=== PATIENT | female | born 1985 | race Caucasian/White ===

== ENCOUNTER 2017-01-12 01:45 | Emergency (ER) | payer MEDICAID ==
[~2017-01-12] VITALS: Ht 165.1 cm; Wt 96.6 kg
[~2017-01-12 01:45] MED LIST: ASPI-COR81 M1 PO; BACTRIM DS 8001 TA1 PO; CLINDAMYCIN300 MG PO; DARVOCET-N6 EACH/PAK PO; FLEXERIL10 MG PO; FLINTSTONES1 CTB PO; IBUPROFEN800 MG PO; IRON TABLETS325 MG PO; MOTRIN400 MG PO; NAPROSYN500 M1 PO; PERCOCET 5/3251 EACH PO; PYRIDIUM 200MG200 MG PO; SEPTRA DS 800 M1 TAB PO; TYLENOL PM 5001 CAP PO
[2017-01-12 02:19] LABS: LYMPH # 2.6 K/mm3 (0.7-4.5); LYMPH % 20.3 % (10-50.0)
[2017-01-12 02:26] LABS: HEMOGLOBIN 14.8 g/dL (12.2-16.2)
[2017-01-12 02:46] LABS: URINE BLOOD NEGATIVE (NEG)
[2017-01-12 02:56] LABS: URINE BILIRUBIN - DIPSTICK 1+ (NEG)
--- NOTE | 2017-01-12 03:39 | Emergency Room Report ---
History of Present Illness Time Seen by [id number] Presenting Problem in Triage Pt arrived:Walked Presenting Problem:N/V WITH DIARRHEA AND ABD. PAIN Onset of symptoms date/time:01/12/17 or onset unknown for: Treatment Prior to Arrival: [employer] Provided by: Sepsis Risk Assessment: Temp: 98.5 B/P: 129/70 MAP: 115 Pulse: 65 Resp: 20 Recent fever? N Clinical Suspician of Infection? N Mental Status: 1 - Regular (Normal Baseline) Sepsis Risk:Low Sepsis Risk Have you (or family members/close friends) recently traveled outside the [place]? N If Yes, where/when: Have you had exposure to infectious disease within the past month? N TB? Other? Specify: Source patient, RN notes reviewed, family, RN/MD Exam Limitations no limitations Comment This is a 31-year-old female patient presenting to the emergency room with upper abdominal pain, nausea, vomiting, diarrhea for the past 5-6 hours. Patient denies any recent travel, any recent exposure to sick contacts. ALLERGIES Coded Allergies: Penicillins (09/14/16) History Medical History General CAD? Yes Angina: No [place]: Yes Hypertension? No Hyperlipidemia? No CHF? No DVT? No PE? No COPD? No Asthma? No Anemia? No GERD? No Gastric ulcers? No GI Bleed? No Hernia? No Thyroid Problems? No Hypothyroidism? No CVA? No Seizures? No Diabetes? No Renal Insuffiency? No End Stage Renal Disease? No UTI? No Stones? Yes GB Disease: Yes Nephritic Syndrome? No Asplenia? No Hepatitis? No Sickle Cell Disease? No Arthritis? No Migraines? No Cataracts? No Glaucoma? No MRSA? No HIV? No TB? No Anxiety? No Depression? No Cancer? 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 Ago Family History Family Hx Diabetes No CAD Yes Hypertension No Hyperlipidemia No Cancer No TB No Social History Smoking Hx Smoker: Current Every Day Smoker Tobacco: Yes Type Cigarettes Packs/day < 1 Pack Alcohol Alcohol: No Review of Systems All Other Systems Reviewed and Negative Gastrointestinal see HPI, abdominal pain, diarrhea, nausea, vomiting Physical Exam Vital Signs Vital Signs Date Time Temp Pulse Resp B/P Pulse O2 O2 Flow FiO2 Ox Delivery Rate 01/12 0526 98.5 69 14 124/69 96 01/12 0524 98.5 69 14 124/69 96 01/12 0437 98.5 69 14 124/ 96 01/12 0253 65 20 129/70 95 01/12 0207 20 01/12 0150 98.5 87 24 159/94 96 General Appearance normal appearance, WD/WN, no apparent distress Respiratory Status Yes: trachea midline, chest symmetrical, non tender chest. No: respiratory distress. Lung Sounds bilateral: normal breath sounds, lungs clear. Cardiovascular normal exam, regular rate/rhythm, no peripheral edema, no gallop, no JVD, no murmur, no rub, normal peripheral pulses Gastrointestinal normal bowel sounds, normal exam, non tender, soft, no organomegaly Extremities non-tender, normal range of motion, normal inspection Neurologic alert, sample cutter II-XII nml as tested, normal exam, oriented x 3 Mental status normal mood/affect Skin intact, normal color, warm/dry Medical Decision Making LABS/Meds/Orders Pt receiving controlled substance in ED? No Comment Upon reevaluation patient asleep, in no acute distress, medically stable. Advised of results obtained, need to drink plenty of fluids, alternate Zofran and Imodium for symptom control. If no better to follow-up with PCP for discharge instructions. Results/Orders Laboratory Tests 01/12/17 0235: Urine Color YELLOW, Urine Appearance CLEAR, Urine pH 5.5, Ur Specific [place] >= 1.030, Urine Protein NEGATIVE, Urine Ketones TRACE H, Urine Blood NEGATIVE, Urine Nitrate NEGATIVE, Urine Bilirubin 1+ H, Urine Urobilinogen 0.2, Ur Leukocyte Esterase NEGATIVE, Urine RBC OCC, Urine WBC 3-5, Ur Squamous Epith Cells 3-5, Urine Bacteria 2+, Urine Mucus 3+, Urine Glucose NEGATIVE 01/12/17 0200: Sodium 142, Potassium 3.4 L, Chloride 106, Carbon Dioxide 25, BUN 14, Creatinine 0.8, Estimated Creat Clear 155, Estimated GFR (MDRD) 84, Glucose 108 H, Calcium 8.8, Total Bilirubin 0.2, AST 14 L, ALT 18, Alkaline Phosphatase 90, Total Protein 7.4, Albumin 3.6, Globulin 3.8 H, Albumin/Globulin Ratio 0.9 L, Amylase 64, Lipase 332, WBC 12.8 H, RBC 4.91, Hgb 14.8, Hct 44.1, MCV 89.7, RDW 12.5, Plt Count 226, MPV 8.1, Gran % 72.2, Gran # 9.2 H, Lymphocytes % 20.3, Monocytes % 5.7, Eosinophils % 1.2, Basophils % 0.5, Lymphocytes # 2.6, Monocytes # 0.7, Eosinophils # 0.2, Basophils # 0.1, PUBS MCHC 33.6, MCH 30.1 Current Medication Orders Sig/Abel Start time Last Medication Dose Route Stop Time Status Admin Diphenoxylate HCl/ 5 MG ONCE ONE 01/12 05 DC Atropine PO 01/12 0516 Loperamide HCl 4 MG ONCE ONE 01/12 0515 DC 01/12 PO 01/12 0516 0523 Ketorolac 30 MG ONCE ONE 01/12 0215 DC 01/12 Tromethamine IV 01/12 0216 0207 Ondansetron HCl 0 .STK-MED ONE 01/12 0206 DC .ROUTE Sodium Chloride 1,000 ML .STK-MED ONE 01/12 0206 DC IV Ketorolac 0 .STK-MED ONE 01/12 0205 DC Tromethamine .ROUTE Ondansetron HCl 4 MG ONCE ONE 01/12 0200 DC 01/12 IV 01/12 0201 0206 Sodium Chloride 10 ML PRN PRN 01/12 0200 DCD IV 01/13 0159 Sodium Chloride 1,000 ML .Q1H1M 01/12 0200 DC 01/12 IV 01/12 0300 0207 Sodium Chloride 10 ML PRN PRN 01/12 0200 DCD IV 01/13 0200 Orders Procedure Date/time Status DIET-NOTHING BY MOUTH 01/[address] ABD/PELVIS REQ 01/12 0339 Active CULTURE, URINE 01/12 0235 Active URINE 01/12 0213 Complete IV SALINE LOCK 01/12 0159 Active URINALYSIS/COMPLETE 01/12 0159 Complete LIPASE 01/12 0159 Complete CBC WITH AUTO DIFF 01/12 015 Complete CHEM 12 PROFILE 01/12 015 Complete AMYLASE 01/12 015 Complete XRAY/CT/US XRAY/CT/US CT abdomen, pelvis CT interpretation by discussed w/radiologist CT Results abnormal Comment Please refer to radiologist's report, consistent with mesenteric adenitis Departure Departure Time of Disposition 05 Disposition DC Home or Self Care(routine) Clinical Impression Primary Impression: Mesenteric adenitis Secondary Impressions: Viral gastroenteritis Condition STABLE Patient Instructions DI for Mesenteric Adenitis-Adult, DI for Viral Gastroenteritis -- Adult Additional Instructions Please take [id number] Imodium as needed for diarrhea, and also find prescription attached for Zofran, to be taken as needed for just/vomiting. Please increase your fluid intake. Follow up with PCP if not better in 2-3 days. Discharge Counseling Counseled pt/family regarding diagnosis, test results, medications/RX, home care, follow up needs Comment Please take [id number] Imodium as needed for diarrhea, and also find prescription attached for Zofran, to be taken as needed for just/vomiting. Please increase your fluid intake. Follow up with PCP if not better in 2-3 days. Prescriptions Current Visit Scripts Ondansetron (Zofran 4MG Odt) 4 MG PO Q6HP PRN NAUSEA AND VOMITING #20 ODT ED Critical Care Critical Care No at 0606
--- NOTE | 2017-01-12 03:39 | Emergency Room Report ---
History of Present Illness Time Seen by [id number] Presenting Problem in Triage Pt arrived:Walked Presenting Problem:N/V WITH DIARRHEA AND ABD. PAIN Onset of symptoms date/time:01/12/17 or onset unknown for: Treatment Prior to Arrival: [employer] Provided by: Sepsis Risk Assessment: Temp: 98.5 B/P: 129/70 MAP: 115 Pulse: 65 Resp: 20 Recent fever? N Clinical Suspician of Infection? N Mental Status: 1 - Regular (Normal Baseline) Sepsis Risk:Low Sepsis Risk Have you (or family members/close friends) recently traveled outside the [place]? N If Yes, where/when: Have you had exposure to infectious disease within the past month? N TB? Other? Specify: Source patient, RN notes reviewed, family, RN/MD Exam Limitations no limitations Comment This is a 31-year-old female patient presenting to the emergency room with upper abdominal pain, nausea, vomiting, diarrhea for the past 5-6 hours. Patient denies any recent travel, any recent exposure to sick contacts. ALLERGIES Coded Allergies: Penicillins (09/14/16) History Medical History General CAD? Yes Angina: No [place]: Yes Hypertension? No Hyperlipidemia? No CHF? No DVT? No PE? No COPD? No Asthma? No Anemia? No GERD? No Gastric ulcers? No GI Bleed? No Hernia? No Thyroid Problems? No Hypothyroidism? No CVA? No Seizures? No Diabetes? No Renal Insuffiency? No End Stage Renal Disease? No UTI? No Stones? Yes GB Disease: Yes Nephritic Syndrome? No Asplenia? No Hepatitis? No Sickle Cell Disease? No Arthritis? No Migraines? No Cataracts? No Glaucoma? No MRSA? No HIV? No TB? No Anxiety? No Depression? No Cancer? 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 Family History Family Hx Diabetes No CAD Yes Hypertension No Hyperlipidemia No Cancer No TB No Social History Smoking Hx Smoker: Current Every Day Smoker Tobacco: Yes Type Cigarettes Packs/day < 1 Pack Alcohol Alcohol: No Review of Systems All Other Systems Reviewed and Negative Gastrointestinal see HPI, abdominal pain, diarrhea, nausea, vomiting Physical Exam Vital Signs Vital Signs Date Time Temp Pulse Resp B/P Pulse O2 O2 Flow FiO2 Ox Delivery Rate 01/12 0526 98.5 69 14 124/69 96 01/12 0524 98.5 69 14 124/69 96 01/12 0437 98.5 69 14 124/ 96 01/12 0253 65 20 129/70 95 01/12 0207 20 01/12 0150 98.5 87 24 159/94 96 General Appearance normal appearance, WD/WN, no apparent distress Respiratory Status Yes: trachea midline, chest symmetrical, non tender chest. No: respiratory distress. Lung Sounds bilateral: normal breath sounds, lungs clear. Cardiovascular normal exam, regular rate/rhythm, no peripheral edema, no gallop, no JVD, no murmur, no rub, normal peripheral pulses Gastrointestinal normal bowel sounds, normal exam, non tender, soft, no organomegaly Extremities non-tender, normal range of motion, normal inspection Neurologic alert, patient portal concierge II-XII nml as tested, normal exam, oriented x 3 Mental status normal mood/affect Skin intact, normal color, warm/dry Medical Decision Making LABS/Meds/Orders Pt receiving controlled substance in ED? No Comment Upon reevaluation patient asleep, in no acute distress, medically stable. Advised of results obtained, need to drink plenty of fluids, alternate Zofran and Imodium for symptom control. If no better to follow-up with PCP for discharge instructions. Results/Orders Laboratory Tests 01/12/17 0235: Urine Color YELLOW, Urine Appearance CLEAR, Urine pH 5.5, Ur Specific [place] >= 1.030, Urine Protein NEGATIVE, Urine Ketones TRACE H, Urine Blood NEGATIVE, Urine Nitrate NEGATIVE, Urine Bilirubin 1+ H, Urine Urobilinogen 0.2, Ur Leukocyte Esterase NEGATIVE, Urine RBC OCC, Urine WBC 3-5, Ur Squamous Epith Cells 3-5, Urine Bacteria 2+, Urine Mucus 3+, Urine Glucose NEGATIVE 01/12/17 0200: Sodium 142, Potassium 3.4 L, Chloride 106, Carbon Dioxide 25, BUN 14, Creatinine 0.8, Estimated Creat Clear 155, Estimated GFR (MDRD) 84, Glucose 108 H, Calcium 8.8, Total Bilirubin 0.2, AST 14 L, ALT 18, Alkaline Phosphatase 90, Total Protein 7.4, Albumin 3.6, Globulin 3.8 H, Albumin/Globulin Ratio 0.9 L, Amylase 64, Lipase 332, WBC 12.8 H, RBC 4.91, Hgb 14.8, Hct 44.1, MCV 89.7, RDW 12.5, Plt Count 226, MPV 8.1, Gran % 72.2, Gran # 9.2 H, Lymphocytes % 20.3, Monocytes % 5.7, Eosinophils % 1.2, Basophils % 0.5, Lymphocytes # 2.6, Monocytes # 0.7, Eosinophils # 0.2, Basophils # 0.1, PUBS MCHC 33.6, MCH 30.1 Current Medication Orders Sig/Abel Start time Last Medication Dose Route Stop Time Status Admin Diphenoxylate HCl/ 5 MG ONCE ONE 01/12 05 DC Atropine PO 01/12 0516 Loperamide HCl 4 MG ONCE ONE 01/12 0515 DC 01/12 PO 01/12 0516 0523 Ketorolac 30 MG ONCE ONE 01/12 0215 DC 01/12 Tromethamine IV 01/12 0216 0207 Ondansetron HCl 0 .STK-MED ONE 01/12 0206 DC .ROUTE Sodium Chloride 1,000 ML .STK-MED ONE 01/12 0206 DC IV Ketorolac 0 .STK-MED ONE 01/12 0205 DC Tromethamine .ROUTE Ondansetron HCl 4 MG ONCE ONE 01/12 0200 DC 01/12 IV 01/12 0201 0206 Sodium Chloride 10 ML PRN PRN 01/12 0200 DCD IV 01/13 0159 Sodium Chloride 1,000 ML .Q1H1M 01/12 0200 DC 01/12 IV 01/12 0300 0207 Sodium Chloride 10 ML PRN PRN 01/12 0200 DCD IV 01/13 0200 Orders Procedure Date/time Status DIET-NOTHING BY MOUTH 01/[address] ABD/PELVIS REQ 01/12 0339 Active CULTURE, URINE 01/12 0235 Active URINE 01/12 0213 Complete IV SALINE LOCK 01/12 0159 Active URINALYSIS/COMPLETE 01/12 0159 Complete LIPASE 01/12 0159 Complete CBC WITH AUTO DIFF 01/12 015 Complete CHEM 12 PROFILE 01/12 015 Complete AMYLASE 01/12 015 Complete XRAY/CT/US XRAY/CT/US CT abdomen, pelvis CT interpretation by discussed w/radiologist CT Results abnormal Comment Please refer to radiologist's report, consistent with mesenteric adenitis Departure Departure Time of Disposition 05 Disposition DC Home or Self Care(routine) Clinical Impression Primary Impression: Mesenteric adenitis Secondary Impressions: Viral gastroenteritis Condition STABLE Patient Instructions DI for Mesenteric Adenitis-Adult, DI for Viral Gastroenteritis -- Adult Additional Instructions Please take [id number] Imodium as needed for diarrhea, and also find prescription attached for Zofran, to be taken as needed for just/vomiting. Please increase your fluid intake. Follow up with PCP if not better in 2-3 days. Discharge Counseling Counseled pt/family regarding diagnosis, test results, medications/RX, home care, follow up needs Comment Please take [id number] Imodium as needed for diarrhea, and also find prescription attached for Zofran, to be taken as needed for just/vomiting. Please increase your fluid intake. Follow up with PCP if not better in 2-3 days. Prescriptions Current Visit Scripts Ondansetron (Zofran 4MG Odt) 4 MG PO Q6HP PRN NAUSEA AND VOMITING #20 ODT ED Critical Care Critical Care No at 0606
[2017-01-12] MEDS ORDERED: ZOFRAN ODT4 MG PO (05:13)
[2017-01-12 05:26] VITALS: BP 124/69
--- NOTE | 2017-01-12 05:36 | RADIOLOGY REPORT PS360 ---
CT ABD PELVIS W/O CONTRAST CLINICAL INDICATION: Abdominal pain, right upper quadrant pain with nausea and vomiting ABD PAIN , N/V ORDERING PHYSICIAN: Dario Leo MD PATIENT AGE: 31 years COMPARISON: None TECHNIQUE: Axial images obtained with sagittal and coronal reformats. PROCEDURE: Oral Contrast: None IV Contrast: None . FINDINGS: Lung bases are clear. The liver, spleen, adrenal glands, and pancreas are unremarkable. There has been a prior cholecystectomy. No biliary dilatation. Nonspecific mesenteric lymph nodes are present No renal calculi or hydronephrosis. No ureteral calculi. Hypoattenuating area right kidney measuring 10 mm and may represent a renal cyst and may be confirmed with ultrasound. Unremarkable appendix. Fluid-filled large and small bowel loops are noted nonspecific and may be seen with gastroenteritis/diarrhea disease. No evidence of diverticulitis. No pelvic mass or focal inflammatory change. No acute bony anomalies. Intramedullary trinity is present in the left proximal femur. IMPRESSION: 1. Possible gastroenteritis/diarrhea disease. 2. Nonacute findings as described above. Please see above for detail
== END 2017-01-12 05:26 | disposition home or self-care (01) ==
LOC: ER 01:45
PROVIDERS: Emergency Medicine
DX: I88.0 Nonspecific mesenteric lymphadenitis (principal); K52.9 Noninfective gastroenteritis and colitis, unspecified
CPT/HCPCS: J2405